=== PATIENT | female | born 1970 | race Caucasian/White ===

== ENCOUNTER 2022-08-07 20:34 | Emergency (ER) | payer OTHER, SELFPAY ==
[2022-08-07 20:57] VITALS: BP 138/87; PULSE 80; RESP 18; TEMP 36.4; O2SAT 98; BMI 23.0
--- NOTE | 2022-08-07 21:36 | ED_ITS ---
Documented by User: Orville Tavera MD 08/28/22 18:07 HPI - Headache General: Chief Complaint: Headache Stated Complaint: headache Time Seen by Provider: 08/07/22 21:35 History of Present Illness: Ms. Randall is a 51-year-old lady with significant past medical history of migraine headaches who presents to the emergency department due to headache with nausea and vomiting. She reports typically headaches are well controlled with atenolol and Topamax and she has not had 1 this severe in approximately 10 years. This 1 is typical in the sense that it starts on her right neck and radiates up towards behind eyes. Associated nausea and vomiting which is nonbilious and on bloody. No other infectious symptoms. May be of been triggered by drive up here and change in weather. No other specific changes in health, exacerbating, or alleviating factors identified. Onset (ago): day(s) Onset description: gradually Severity: severe Quality & Timing: throbbing Exacerbating factors: exertion, light and noise Relieving factors: dark room Review of Systems General: Reports: 10 or more systems reviewed and unremarkable except in HPI and below PFSH ED PFSH: Medical History Migraines Surgical History History of endometrial ablation Physical Exam Const: COMMON NORMALS: patient oriented x3 and alert GENERAL APPEARANCE: cooperative and well developed HENMT: COMMON NORMALS: normocephalic and atraumatic HEAD & SCALP: normocephalic and atraumatic Eye: COMMON NORMALS: conjunctivae normal CONJUNCTIVA: Yes conjunctivae normal SCLERA: sclerae normal Neck/C-Spine: COMMON NORMALS: supple GENERAL: Yes trachea midline Resp: COMMON NORMALS: normal respiratory effort EFFORT & INSPECTION: Yes able to speak in complete sentences Cardio: COMMON NORMALS: regular rate and regular rhythm RATE: regular rate RHYTHM: regular rhythm GI: COMMON NORMALS: Soft to palpation PALPATION: Yes Soft to palpation and No Tenderness to palpation present (GI) PERCUSSION: normal to percussion Extremity: GENERAL: Yes normal exam except as noted and No edema Neuro: COMMON NORMALS: patient oriented x3, CN's II-XII intact bilaterally, moves all extremities, no focal motor deficits and no sensory deficits noted SENSORIUM/ORIENTATION: Yes alert and No Orientation impaired Psych: COMMON NORMALS: mental status grossly normal and Normal thought process present THOUGHT PROCESS: Normal thought process present Course Vital Signs: Vital signs: Vital Signs Temperature 98.1 F 08/08/22 00:08 Pulse Rate 59 L 08/08/22 00:08 Respiratory Rate 18 08/08/22 00:08 Blood Pressure 158/92 08/08/22 00:08 Pulse Oximetry 98 08/08/22 00:08 Oxygen Delivery Me thod 08/07/22 20:57 MDM - Headache Medical Decision Making 51-year-old lady presenting with headache. Does have a history of headaches though typically well controlled and this is the worst in 10 years or so. Laboratory studies reviewed without acute pathology to explain symptoms. Headache treatment ordered. Handed off pending reassessment of condition for improvement. Patient presents with a headache likely migraine headache she does feel improved here no signs of meningitis or subarachnoid hemorrhage blood works normal she is stable for discharge she is to follow-up PCP and return if worsening. Medical Records I reviewed the patient's medical records. Lab Data I reviewed the patient's lab results. : 08/07/22 23:10 08/07/22 23:10 Laboratory Results WBC 4.4 10^3/uL (4.0-10.0) 08/07/22 23:10 RBC 3.95 10^6/uL (4.1-5.3) L 08/07/22 23:10 Hgb 12.2 g/dL (11.5-15.3) 08/07/22 23:10 Hct 36.9 % (37.0-47.0) L 08/07/22 23:10 MCV 93.4 fl (81-99) 08/07/22 23:10 MCH 30.9 pg (28.0-34.0) 08/07/22 23:10 MCHC 33.1 g/dL (30.0-36.0) 08/07/22 23:10 RDW 12.5 % (12.1-15.1) 08/07/22 23:10 Plt Count 279 10^3/cmm (130-400) 08/07/22 23:10 MPV 10.2 fL (7.4-10.4) 08/07/22 23:10 Neut % (Auto) 60.0 % 08/07/22 23:10 Lymph % (Auto) 24.0 % 08/07/22 23:10 Harney % (Auto) 14.6 % 08/07/22 23:10 Eos % (Auto) 0.7 % 08/07/22 23:10 Baso % (Auto) 0.2 % 08/07/22 23:10 Neut # (Auto) 2.63 10^3/uL (1.8-7.7) 08/07/22 23:10 Lymph # (Auto) 1.1 10^3/uL (0.8-4.8) 08/07/22 23:10 Harney # (Auto) 0.6 10^3/uL (0.2-0.9) 08/07/22 23:10 Eos # (Auto) 0.0 10^3/uL (0.0-0.8) 08/07/22 23:10 Baso # (Auto) 0.0 10^3/uL (0.0-0.1) 08/07/22 23:10 Nucleated RBC % (auto) 0 % 08/07/22 23:10 Nucleated RBCs # 0.0 /100WBC 08/07/22 23:10 Sodium 139 mmol/L (136-145) 08/07/22 23:10 Potassium 3.5 mmol/L (3.5-5.1) 08/07/22 23:10 Chloride 110 mmol/L (98-107) H 08/07/22 23:10 Carbon Dioxide 16 mmol/L (22-29) L 08/07/22 23:10 Anion Gap 16.5 (5-19) 08/07/22 23:10 BUN 10 mg/dL (6-20) 08/07/22 23:10 Creatinine 0.7 mg/dL (0.5-0.9) 08/07/22 23:10 GFR Calculation 88.6 mL/min (90-130) L 08/07/22 23:10 Glucose 122 mg/dL (65-115) H 08/07/22 23:10 Calculated Osmolality 288 mOsm/kg (285-295) 08/07/22 23:10 Calcium 7.8 mg/dL (8.5-10.5) L 08/07/22 23:10 Total Bilirubin 0.3 mg/dL (0.15-1.2) 08/07/22 23:10 AST 15 U/L (0-32) 08/07/22 23:10 ALT 15 U/L (0-33) 08/07/22 23:10 Alkaline Phosphatase 53 U/L (35-105) 08/07/22 23:10 Total Protein 6.4 g/dL (6.6-8.7) L 08/07/22 23:10 Albumin 3.5 g/dL (3.5-5.2) 08/07/22 23:10 Globulin 2.9 g/dL (1.3-4.6) 08/07/22 23:10 Discharge Plan Discharge Patient Disposition: Home Clinical Impression: Headache Condition: Stable Discharge Orders: Discharge ED (Routine); Ordered 08/07/22 Ordered By: Kanwal Gonzalez Discharge Diet: Advance as tolerated Discharge Activity: Resume usual activity Patient Instructions: General Headache (ED) Coding Level of Care Code ED Laundry Agent for Chg Fwd Documented by User: Kanwal Gonzalez MD 08/08/22 00:05 HPI - Headache General: Chief Complaint: Headache Stated Complaint: headache Time Seen by Provider: 08/07/22 21:35 [facility] ED PFSH: Medical History Migraines Surgical History History of endometrial ablation Course Vital Signs: Vital signs: Vital Signs Temperature 98.1 F 08/08/22 00:08 Pulse Rate 59 L 08/08/22 00:08 Respiratory Rate 18 08/08/22 00:08 Blood Pressure 158/92 08/08/22 00:08 Pulse Oximetry 98 08/08/22 00:08 Oxygen Delivery Me thod 08/07/22 20:57 MDM - Headache Medical Decision Making Patient presents with a headache likely migraine headache she does feel improved here no signs of meningitis or subarachnoid hemorrhage blood works normal she is stable for discharge she is to follow-up PCP and return if worsening. Lab Data : 08/07/22 23:10 08/07/22 23:10 Laboratory Results WBC 4.4 10^3/uL (4.0-10.0) 08/07/22 23:10 RBC 3.95 10^6/uL (4.1-5.3) L 08/07/22 23:10 Hgb 12.2 g/dL (11.5-15.3) 08/07/22 23:10 Hct 36.9 % (37.0-47.0) L 08/07/22 23:10 MCV 93.4 fl (81-99) 08/07/22 23:10 MCH 30.9 pg (28.0-34.0) 08/07/22 23:10 MCHC 33.1 g/dL (30.0-36.0) 08/07/22 23:10 RDW 12.5 % (12.1-15.1) 08/07/22 23:10 Plt Count 279 10^3/cmm (130-400) 08/07/22 23:10 MPV 10.2 fL (7.4-10.4) 08/07/22 23:10 Neut % (Auto) 60.0 % 08/07/22 23:10 Lymph % (Auto) 24.0 % 08/07/22 23:10 Harney % (Auto) 14.6 % 08/07/22 23:10 Eos % (Auto) 0.7 % 08/07/22 23:10 Baso % (Auto) 0.2 % 08/07/22 23:10 Neut # (Auto) 2.63 10^3/uL (1.8-7.7) 08/07/22 23:10 Lymph # (Auto) 1.1 10^3/uL (0.8-4.8) 08/07/22 23:10 Harney # (Auto) 0.6 10^3/uL (0.2-0.9) 08/07/22 23:10 Eos # (Auto) 0.0 10^3/uL (0.0-0.8) 08/07/22 23:10 Baso # (Auto) 0.0 10^3/uL (0.0-0.1) 08/07/22 23:10 Nucleated RBC % (auto) 0 % 08/07/22 23:10 Nucleated RBCs # 0.0 /100WBC 08/07/22 23:10 Sodium 139 mmol/L (136-145) 08/07/22 23:10 Potassium 3.5 mmol/L (3.5-5.1) 08/07/22 23:10 Chloride 110 mmol/L (98-107) H 08/07/22 23:10 Carbon Dioxide 16 mmol/L (22-29) L 08/07/22 23:10 Anion Gap 16.5 (5-19) 08/07/22 23:10 BUN 10 mg/dL (6-20) 08/07/22 23:10 Creatinine 0.7 mg/dL (0.5-0.9) 08/07/22 23:10 GFR Calculation 88.6 mL/min (90-130) L 08/07/22 23:10 Glucose 122 mg/dL (65-115) H 08/07/22 23:10 Calculated Osmolality 288 mOsm/kg (285-295) 08/07/22 23:10 Calcium 7.8 mg/dL (8.5-10.5) L 08/07/22 23:10 Total Bilirubin 0.3 mg/dL (0.15-1.2) 08/07/22 23:10 AST 15 U/L (0-32) 08/07/22 23:10 ALT 15 U/L (0-33) 08/07/22 23:10 Alkaline Phosphatase 53 U/L (35-105) 08/07/22 23:10 Total Protein 6.4 g/dL (6.6-8.7) L 08/07/22 23:10 Albumin 3.5 g/dL (3.5-5.2) 08/07/22 23:10 Globulin 2.9 g/dL (1.3-4.6) 08/07/22 23:10 Discharge Plan Discharge Patient Disposition: Home Clinical Impression: Headache Condition: Stable Discharge Orders: Discharge ED (Routine); Ordered 08/07/22 Ordered By: Kanwal Gonzalez Discharge Diet: Advance as tolerated Discharge Activity: Resume usual activity Patient Instructions: General Headache (ED) Coding Level of Care Code ED Laundry Agent for Chg Siddharth
[2022-08-07] MEDS: diphenhydrAMINE 50 mg/mL SDV 1mL 25 MG IVP (22:11)
[2022-08-07] MEDS: ketorolac 30 mg/mL INJ 15 MG IVP (22:11)
[2022-08-07] MEDS: sodium chloride 0.9% 1,000 ML 999 ML IV (22:11)
[2022-08-07] MEDS: metoclopramide 5 mg/mL SDV 2 mL 10 MG IVP (22:11)
[2022-08-07] MEDS: dihydroergotamine 1 mg/mL Inj IVP (23:14)
[2022-08-07] MEDS: dexamethasone 10 mg/mL INJ IVP (23:14)
[2022-08-07] MEDS: acetaminophen 500 mg Tablet 1000 MG PO (23:14)
[2022-08-07 23:18] LABS: Basophils % 0.2 %; Eosinophils % 0.7 %; Hematocrit 36.9 % (37.0-47.0); Hemoglobin 12.2 g/dL (11.5-15.3); Lymphocytes # 1.1 10^3/uL (0.8-4.8); Mean Corpuscular HGB Conc 33.1 g/dL (30.0-36.0); Mean Corpuscular Hemoglobin 30.9 pg (28.0-34.0); Mean Corpuscular Volume 93.4 fl (81-99); Mean Platelet Volume 10.2 fL (7.4-10.4); Monocytes # 0.6 10^3/uL (0.2-0.9); Monocytes % 14.6 %; Neutrophils # 2.63 10^3/uL (1.8-7.7); Nucleated Red Blood Cells % 0 %; Platelet Count 279 10^3/cmm (130-400); Red Blood Count 3.95 10^6/uL (4.1-5.3); Red Cell Distribution Width 12.5 % (12.1-15.1); White Blood Count 4.4 10^3/uL (4.0-10.0)
[2022-08-07 23:25] VITALS: RESP 19
[2022-08-07] MEDS: HYDROmorphone 1 mg/mL INJ 1 mL 0.5 MG IVP (23:25)
[2022-08-07] MEDS: ondansetron 2 mg/ML SDV 2 mL 4 MG IVP (23:25)
[2022-08-07 23:36] LABS: Alanine Aminotransferase 15 U/L (0-33); Albumin Level 3.5 g/dL (3.5-5.2); Alkaline Phosphatase 53 U/L (35-105); Anion Gap 16.5 (5-19); Aspartate Amino Transferase 15 U/L (0-32); Blood Urea Nitrogen 10 mg/dL (6-20); Calcium 7.8 mg/dL (8.5-10.5); Carbon Dioxide 16 mmol/L (22-29); Chloride 110 mmol/L (98-107); Globulin 2.9 g/dL (1.3-4.6); Glomerular Filtration Rate 88.6 mL/min (90-130); Glucose 122 mg/dL (65-115); Osmolality Calculated 288 mOsm/kg (285-295); Potassium 3.5 mmol/L (3.5-5.1); Sodium 139 mmol/L (136-145); Total Bilirubin 0.3 mg/dL (0.15-1.2); Total Protein 6.4 g/dL (6.6-8.7)
[2022-08-08 00:08] VITALS: BP 158/92; PULSE 59; RESP 18; TEMP 36.7; O2SAT 98
== END 2022-08-08 00:10 | disposition home or self-care (01) ==
PROVIDERS: Emergency Medicine; Emergency Provider Emergency Medicine
DX: R51.9 Headache, unspecified (principal)
CPT/HCPCS: 80053; 85025; 96365; 96375; 99284; J1100; J1110; J1170; J1200; J1885; J2405; J2765; J3475; J7030